=== PATIENT | male | born 1950 | race Caucasian/White ===

== ENCOUNTER 2018-01-25 15:24 | Emergency (ER) | payer MEDICARE, BC ==
[2018-01-25 15:52] VITALS: BP 164/96
--- NOTE | 2018-01-25 16:26 | UC ---
Shoulder Pain HPI - HPI Summary HPI Summary: Per assisted living care manager "c/o R shoulder pain since yesterday afternoon when pt states he fell while fishing and landed with his R arm outstretched. Pt indicates pain as being in the deltoid region. He states a hx of past injury to the same shoulder. " he had recent partial tear that he has been working on slowly that just recently recovered from. arm got trapped uner his torso as he was sliding down. felt like a rubber band snapped in his shoulder. knows he did something big to it. he is left hand dominant. unable to turn car ignition on with rt hand , needs to use left hand. unable to get much more than 15 degree range of motion. no numbing or tingling. - History of Current Complaint Chief Complaint: UCUpperExtremity Stated Complaint: RT SHLDER PAIN S/P FALL Time Seen by Provider: 01/25/18 16:13 Pain Intensity: 7 - Allergies/Home Medications Allergies/Adverse Reactions: Allergies Allergy/AdvReac Type Severity Reaction Status Date / Time MS Statins [Statins] AdvReac Muscle Ache Verified 01/25/18 15:52 cats Allergy Rash Uncoded 09/02/15 11:26 Home Medications: Home Medications Lidocaine PATCH 5%* [Lidoderm 5% Patch*] 1 patch TRANSDERM DAILY 01/25/18 [ History Confirmed 01/25/18] PMH/Surg Hx/FS Hx/Imm Hx Previously Healthy: Yes - Surgical History Surgical History: Yes Surgery Procedure, Year, and Place: hernia repair - Family History Known Family History: Positive: Hypertension - Social History Alcohol Use: Weekly Alcohol Amount: 2/3 week Substance Use Type: None Smoking Status (MU): Never Smoked Tobacco - Immunization History Most Recent Influenza Vaccination: 07/2015 Review of Systems Constitutional: Negative Skin: Negative Eyes: Negative ENT: Negative Respiratory: Negative Cardiovascular: Negative Gastrointestinal: Negative Genitourinary: Negative Motor: Negative Neurovascular: Negative Musculoskeletal: Decreased ROM - pain, rt shoulder Neurological: Negative Psychological: Negative Is Patient Immunocompromised?: No All Other Systems Reviewed And Are Negative: Yes Physical Exam Triage Information Reviewed: Yes Appearance: Well-Appearing, No Pain Distress, Well-Nourished Vital Signs: Initial Vital Signs Temp 97.3 F 01/25/18 15:43 Pulse 82 01/25/18 15:43 Resp 16 01/25/18 15:43 BP 164/96 01/25/18 15:43 Pulse Ox 99 01/25/18 15:43 Vital Signs Reviewed: Yes ENT Exam: Normal Dental Exam: Normal Neck exam: Normal Respiratory Exam: Normal Respiratory: Positive: Lungs clear, Normal breath sounds, No respiratory distress Cardiovascular: Positive: RRR, Other: - II/ NEVA at LUSB, raiates to carotids. Abdominal Exam: Normal Musculoskeletal: Positive: ROM Limited @ - right shoulder. unable to move > 15 degress in all planes. tender at deltoid. non tender at bony landmarks. + 2 radial right. sens intact Neurological Exam: Normal Psychological Exam: Normal Skin Exam: Normal Shoulder Course/Dx - Course Course Of Treatment: Rt shoulder xray is negative. CD copy given of images. Follow up with his ortho early next week. do not take 3 otc aleve as it is higher dose than recommended. -Systolic ejection murmur heard - needs to f/u with PCP and have an ECHO done. he is unaware of murmur. he is very agreeable. -BP high likely d/t pain. -he should not take naproxyn when he is taking tramadol. - Differential Dx/Diagnosis Differential Diagnosis/HQI/PQRI: AC Separation, Arthritis, Rotator Cuff Injury, Sprain, Strain, Other - Aortic stenosis Provider Diagnoses: Rt rotator cuff injury, suspect aortic stenosis murmur Discharge - Sign-Out/Discharge Documenting (check all that apply): Post-Discharge Follow Up - Discharge Plan Condition: Stable Disposition: HOME Prescriptions: Naproxen [Naproxen 500 mg tab] 500 mg PO BID PRN #60 tablet PRN Reason: Pain Patient Education Materials: Shoulder Pain (ED), Heart Murmur (ED) Referrals: Cheng Sykes MD [Primary Care Provider] - Additional Instructions: -Make sure to follow up with your orthopedists office on Sunday. We have given you a sling to help give you some rest. Do not take more than the prescribed naproxyn dose. Continue to ice. I suspect that there is damage to your rotator cuff. -We talked about the prominent heart murmur discovered on your exam today. I recommend that you follow up with your PCP to have an echocardiogram scheduled. - Billing Disposition and Condition Condition: STABLE Disposition: HOME
--- NOTE | 2018-01-25 16:26 | RAD ---
INDICATION: Right shoulder pain after slip and fall injury COMPARISON: None. TECHNIQUE: 4 views of the right shoulder were obtained. FINDINGS: The adequately corticated bones are in normal alignment. Joint spaces appear maintained. No fracture, dislocation or focal bony abnormality is seen. IMPRESSION: Normal radiograph of the right shoulder. If the patient's symptoms persist, follow-up imaging is recommended.
== END 2018-01-25 16:54 | disposition home or self-care (01) ==
LOC: UCCORT 15:24
DX: S46.001A Unspecified injury of muscle(s) and tendon(s) of the rotator cuff of right shoulder, initial encounter (principal); W19.XXXA Unspecified fall, initial encounter; Y93.89 Activity, other specified; Y92.9 Unspecified place or not applicable; R01.1 Cardiac murmur, unspecified; Z88.8 Allergy status to other drugs, medicaments and biological substances
CPT/HCPCS: 99213; G0463